=== PATIENT | female | born 1945 | race Caucasian/White ===

== ENCOUNTER 2020-04-28 09:35 | Outpatient (CLI) | payer OTHER | END 2020-04-28 09:36 | disposition home or self-care (01) | LOC: BICMAMMO 09:35 | DX: Z12.31 Encounter for screening mammogram for malignant neoplasm of breast (principal) | CPT/HCPCS: 77063; 77067 ==

== ENCOUNTER 2021-10-17 10:29 | Outpatient (CLI) | payer MEDICARE | END 2021-10-17 10:30 | disposition home or self-care (01) | LOC: BICMAMMO 10:29 | PROVIDERS: ATTEND Family Medicine | DX: Z12.31 Encounter for screening mammogram for malignant neoplasm of breast (principal) | CPT/HCPCS: 77063; 77067 ==

== ENCOUNTER 2023-01-31 11:12 | Outpatient (CLI) | payer MEDICARE | END 2023-01-31 11:13 | disposition home or self-care (01) | LOC: BICMAMMO 11:12 | PROVIDERS: ATTEND Family Medicine | DX: Z12.31 Encounter for screening mammogram for malignant neoplasm of breast (principal); Z80.3 Family history of malignant neoplasm of breast | CPT/HCPCS: 77063; 77067 ==

== ENCOUNTER 2024-02-03 15:21 | Outpatient (CLI) | payer MEDICARE, OTHER | END 2024-02-03 15:22 | disposition home or self-care (01) | LOC: BICMAMMO 15:21 | PROVIDERS: ATTEND Family Medicine | DX: Z12.31 Encounter for screening mammogram for malignant neoplasm of breast (principal); Z80.3 Family history of malignant neoplasm of breast | CPT/HCPCS: 77063; 77067 ==

== ENCOUNTER 2025-02-18 12:51 | Outpatient (CLI) | payer MEDICARE, OTHER | END 2025-02-18 12:52 | disposition home or self-care (01) | LOC: BICMAMMO 12:51 | PROVIDERS: ATTEND Family Medicine | DX: Z12.31 Encounter for screening mammogram for malignant neoplasm of breast (principal); Z80.3 Family history of malignant neoplasm of breast | CPT/HCPCS: 77063; 77067 ==